=== PATIENT | female | born 1995 | race Caucasian/White ===

== ENCOUNTER 2017-03-01 00:25 | Inpatient (IN) | payer BC ==
[2017-03-01] MEDS ORDERED: NORMAL SALINE 1000 ML 1,000 ML IV PRN ×2 (00:33→02:36)
[2017-03-01] MEDS ORDERED: DEXTROSE 50%-WATER 25 GM/50 ML DISP.SYRIN IV PRN ×4 (00:35→02:36)
[2017-03-01] MEDS ORDERED: DEXTROSE 40% GEL 15 GM TUBE PO PRN ×5 (00:35→14:39)
[2017-03-01] MEDS ORDERED: NORMAL SALINE 100 ML with INSULIN REGULAR, HUMAN 100 UNIT IV PRN ×4 (00:35→02:36)
[2017-03-01] MEDS ORDERED: GLUCAGON,HUMAN RECOMB 1 MG INJ IM PRN ×3 (00:35→14:39)
--- NOTE | 2017-03-01 00:35 | ER Document Report ---
ED General - General Stated Complaint: UNRESPONSIVE Time Seen by Provider: 03/01/17 00:33 Notes: Patient is a 21-year-old female presents with complaints of being found unresponsive. She stays with friends at [place]. She has a history of type 1 diabetes. She is not compliant with her medications per the production recorder report. Paramedics said that a friend of hers said that they found her poorly responsive and could not wake her up and therefore called the implants. It is unclear last time she was known well. Paramedics said they were called to her house personally 36 hours ago because he was concerned that someone stole her medications. This was later denied when the paramedics arrived and therefore they left. There is a 36 hours ago she was awake alert and oriented. Patient does have 3 different medication bottles are brought with her. 2 of them have appropriate amounts of medications. The third 1 is gabapentin. This prescription was filled on February 06. It was for 120 tablets. This means there is approximately 28 gabapentin tablets missing. Currently her pupils are dilated and she is somnolent and very dry appearing. - Related Data Allergies/Adverse Reactions: ciprofloxacin [From Cipro] Adverse Reaction (Verified 03/01/17 00:59) midazolam [From Versed] Adverse Reaction (Verified 03/01/17 00:59) Past Medical History - Social History Smoking Status: Never Smoker Frequency of alcohol use: None Drug Abuse: None Family History: Reviewed & Not Pertinent Review of Systems - Review of Systems -: Yes ROS unobtainable due to patient's medical condition - Patient is unresponsive. Physical Exam - Vital signs Vitals: Pulse Ox 89 L 03/01/17 00:27 - Notes Notes: General Appearance: Very dehydrated appearing. Poorly responsive. Pupils dilated. Patient moves extremities some on her own. Vitals: reviewed, See vital signs table. Head: no swelling or tenderness to the head Eyes: , EOMI, Conjuctiva clear. Pupils are dilated but equal and responsive to light. Mouth: Very dry. Throat: No tonsillar inflammation, No airway obstruction, No lymphadenopathy Neck: Supple, no neck tenderness, No thyromegaly Lungs: No wheezing, No rales, No rhonci, No accessory muscle use, good air exchange bilaterally. Heart: Normal rate, Regular rythm, No murmur, no rub Abdomen: Normal BS, soft, No rigidity, No abdominal tenderness, No guarding, large ventral scar of her abdomen which per the paramedics is from a previous appendectomy. Extremities: , good pulses in all extremities, no swelling or tenderness in the extremities, no edema. Skin: warm, dry, appropriate color, no rash Neuro: Poorly responsive. Pupils dilated. Patient moves extremities some on her own. Vitals: reviewed, See vital signs table. Course - Re-evaluation Re-evalutation: 03/01/17 02:25 Patient's chemistry panel Miller came back. Her CO2 is less than 5. PH is X.73. Her blood sugars over 1400. Her insulin drip will be increased to 5 units an hour. She has been started on a bicarb drip. Her core temp is slowly moving upwards. I will call the hospitalist for consideration for admission. - Vital Signs Vital signs: Temp Pulse Resp BP Pulse Ox 97.9 F 112 H 32 H 104/70 100 03/01/17 05:09 03/01/17 05:09 03/01/17 05:09 03/01/17 05:09 03/01/17 05:09 - Laboratory Result Diagrams: 03/01/17 00:40 03/01/17 05:00 Laboratory results interpreted by me: 03/01/17 03/01/17 03/01/17 00:40 00:40 00:40 WBC 19.5 H RBC 3.38 L Hgb 9.7 L MCV 124 H MCHC 23.2 L RDW 16.7 H Plt Count 626 H Seg Neuts % (Manual) 79 H Band Neutrophils % 2 L Lymphocytes % (Manual) 11 L Abs Neuts (Manual) 15.8 H Abs Monocytes (Manual) 1.6 H Carbonic Acid ABG pH ABG pCO2 ABG pO2 ABG HCO3 ABG Total CO2 VBG pH 6.73 L* VBG pCO2 24.8 L VBG HCO3 3.2 L Sodium 136.6 L Potassium 7.2 H* Chloride 92 L Carbon Dioxide < 5 L* BUN 54 H Creatinine 2.90 H Est GFR ( Amer) 24 L Est GFR (Non-Af Amer) 20 L Glucose 1454 H* Direct Bilirubin 0.6 H Alkaline Phosphatase 212 H Creatine Kinase Urine Protein Urine Glucose (UA) Urine Ketones Salicylates < 1.0 L Acetaminophen < 10 L 03/01/17 03/01/17 03/01/17 00:40 01:10 03:24 WBC RBC Hgb MCV MCHC RDW Plt Count Seg Neuts % (Manual) Band Neutrophils % Lymphocytes % (Manual) Abs Neuts (Manual) Abs Monocytes (Manual) Carbonic Acid 0.40 L ABG pH 6.96 L* ABG pCO2 13.4 L* ABG pO2 144.3 H ABG HCO3 2.9 L ABG Total CO2 3.3 L VBG pH VBG pCO2 VBG HCO3 Sodium Potassium Chloride Carbon Dioxide BUN Creatinine Est GFR ( Amer) Est GFR (Non-Af Amer) Glucose Direct Bilirubin Alkaline Phosphatase Creatine Kinase 21 L Urine Protein 100 H Urine Glucose (UA) >=500 H Urine Ketones 80 H Salicylates Acetaminophen - EKG Interpretation by Me Additional EKG results interpreted by me: 03/01/17 00:42 EKG is reviewed and interpreted by me. EKG shows sinus rhythm with rate of [address] segment elevation. Slight ST segment depression in leads V5 and V6. UT interval, QRS duration are within normal range. QTc interval is prolonged. No old EKG available for comparison. Procedures - Central Line Right Femoral Consent obtained: No - emergent implied Central line pre-insertion: Chloraprep applied Central line lumen type: Triple Ultrasound guided: Yes Central line post-insertion: Blood return from lumens, Biopatch applied, Sutured , Sterile dressing applied Number of attempts: 1 Complications: No Notes: 03/01/17 06:37 Dark nonpulsatile blood was withdrawn from syringe. After placement of the central line catheter dark nonpulsatile blood moved up the midline of the central line. Critical Care Note - Critical Care Note Total time excluding time spent on procedures (mins): 75 Comments: Ankle care time for this patient including multiple re-evaluations, management of fluids, management of DKA, management of hypothermia, management of severe metabolic acidosis was approximately 75 minutes. This is not including time spent on procedure. Discharge - Discharge Clinical Impression: DKA (diabetic ketoacidoses) Qualifiers: Diabetes mellitus type: type 1 Diabetes mellitus complication detail: with coma Qualified Code(s): E10.11 - Type 1 diabetes mellitus with ketoacidosis with coma Overdose Qualifiers: Encounter type: initial encounter Injury intent: undetermined intent Qualified Code(s): T50.904A - Poisoning by unspecified drugs, medicaments and biological substances, undetermined, initial encounter Condition: Stable Disposition: ADMITTED INPATIENT Admitting Provider: Hospitalist Unit Admitted: ICU
[2017-03-01 00:52] LABS: HEMATOCRIT 41.8 % (36.0-47.0); HEMOGLOBIN 9.7 g/dL (12.0-15.5); MEAN CORPUSCULAR HEMOGLOBIN 28.8 pg (27.0-33.4); MEAN CORPUSCULAR HGB CONC 23.2 g/dL (32.0-36.0); RED BLOOD COUNT 3.38 10^6/uL (3.72-5.28); RED CELL DISTRIBUTION WIDTH 16.7 % (11.5-14.0); WHITE BLOOD COUNT 19.5 10^3/uL (4.0-10.5)
[2017-03-01 00:56] LABS: VENOUS BLOOD BASE EXCESS -31.4 mmol/L; VENOUS BLOOD HCO3 3.2 mmol/L (20-32); VENOUS BLOOD PCO2 24.8 mmHg (35-63)
[2017-03-01 01:00] LABS: HGB HCT DIFFERENCE -12.7
[2017-03-01 01:29] LABS: BAND NEUTROPHILS % (MANUAL) 2 % (3-5); BASOPHILS % (MANUAL) 0 % (0-2); EOSINOPHILS % (MANUAL) 0 % (0-6); LYMPHOCYTES % (MANUAL) 11 % (13-45); TOTAL CELLS COUNTED 100
[2017-03-01 01:30] LABS: ALANINE AMINOTRANSFERASE 27 U/L (9-52); ALBUMIN 3.8 g/dL (3.5-5.0); ALKALINE PHOSPHATASE 212 U/L (38-126); ANISOCYTOSIS 1+; ASPARTATE AMINO TRANSFERASE 21 U/L (14-36); BILIRUBIN,DIRECT 0.6 mg/dL (0.0-0.4); BILIRUBIN,TOTAL 0.6 mg/dL (0.2-1.3); BLOOD UREA NITROGEN 54 mg/dL (7-20); CALCIUM 8.9 mg/dL (8.4-10.2); CHLORIDE 92 mmol/L (98-107); POIKILOCYTOSIS SLIGHT; SODIUM 136.6 mmol/L (137-145); TOTAL PROTEIN 7.1 g/dL (6.3-8.2); TOXIC GRANULATION SLIGHT
[2017-03-01 01:31] LABS: MEAN CORPUSCULAR VOLUME 124 fl (80-97)
[2017-03-01] MEDS ORDERED: INSULIN REG, HUMAN 100 UNIT/ML 3 ML VIAL (PYX) ONE (01:33)
[2017-03-01 01:34] LABS: VENOUS BLOOD PH 6.73 (7.30-7.42)
[2017-03-01 01:36] LABS: ALCOHOL < 10 mg/dL (NONE DETECTED)
[2017-03-01] MEDS ORDERED: NORMAL SALINE 1000 ML 1,000 ML IV ONE (01:42)
[2017-03-01 02:01] LABS: APPEARANCE,URINE SLIGHTLY-CLOUDY; BILIRUBIN,URINE NEGATIVE (NEGATIVE); GLUCOSE, URINE >=500 mg/dL (NEGATIVE); KETONES,URINE 80 mg/dL (NEGATIVE); LEUKOCYTE ESTERASE,URINE NEGATIVE (NEGATIVE); NITRITE,URINE NEGATIVE (NEGATIVE); PROTEIN,URINE 100 mg/dL (NEGATIVE); URINE SPECIFIC GRAVITY 1.022; UROBILINOGEN,URINE NEGATIVE mg/dL (<2.0)
[2017-03-01] MEDS ORDERED: DEXTROSE 5%-WATER 1000 ML 1,000 ML with SODIUM BICARBONATE 150 MEQ IV PRN ×4 (02:11→06:37)
[2017-03-01 02:12] LABS: GLUCOSE 1454 mg/dL (75-110); POTASSIUM 7.2 mmol/L (3.6-5.0)
[2017-03-01 02:13] LABS: CARBON DIOXIDE < 5 mmol/L (22-30)
[2017-03-01 02:14] LABS: URINE BARBITURATES SCREEN NEGATIVE; URINE METHADONE SCREEN NEGATIVE; URINE OPIATES LOW NEGATIVE; URINE PHENCYCLIDINE SCREEN NEGATIVE
[2017-03-01] MEDS ORDERED: SODIUM BICARBONATE 8.4% INJ 50 MEQ/50 ML DISP.SYRIN ONE ×2 (02:15→06:13)
[2017-03-01] MEDS ORDERED: NORMAL SALINE 1000 ML 2,000 ML IV ONE (02:37)
[2017-03-01] MEDS ORDERED: ALBUTEROL SULFATE 0.083% NEB 2.5 MG/3 ML AMPUL NEB ONE (02:38)
[2017-03-01] MEDS ORDERED: ONDANSETRON HCL INJ/PF 4 MG/2 ML SDV IV PRN ×2 (03:29→20:03)
[2017-03-01 03:34] LABS: ARTERIAL BLOOD BASE EXCESS -27.2 mmol/L; ARTERIAL BLOOD O2 SATURATION 97.3 % (94-98)
--- NOTE | 2017-03-01 04:25 | PDOC H&P ---
History of Present Illness Admission Date/PCP: 03/01/17 03:51 History of Present Illness: NATALI CARDENAS is a 21 year old female with a PMH of poorly compliant DM type I. Patient was found unresponsive by friends who then activated EMS. History is unobtainable from patient at this time and is therefore obtained from the ER physician documentation. "It is unclear last time she was known well. Paramedics said they were called to her house personally 36 hours ago because he was concerned that someone stole her medications. This was later denied when the paramedics arrived and therefore they left. There is a 36 hours ago she was awake alert and oriented. Patient does have 3 different medication bottles are brought with her. 2 of them have appropriate amounts of medications. The third is gabapentin. This prescription was filled on February 06. It was for 120 tablets. This means there is approximately 28 gabapentin tablets missing. Currently her pupils are dilated and she is somnolent and very dry appearing." Patient was found to be in DKA with a pH of 6.7, blood glucose 1454, K of 7.2, and obtunded. She is referred to the hospital service for admission. Medications are at bedside and are Seroquel, gabapentin, and NovoLog. Past Medical History Medical History: Other - Able to obtain secondary to obtundation, presumed diabetes mellitus type 1 Endocrine Medical History: Reports: Diabetes Mellitus Type 1 Past Surgical History Past Surgical History: Reports: Appendectomy, Other - Unable to obtain secondary to obtundation, patient has a midline scar Social History Smoking Status: Never Smoker Amount of Alcoholic Beverages Per Day: Unknown Past Social History Note: Able to obtain secondary to obtundation - Advance Directive Resuscitation Status: Full Code Family History Family History: Reviewed & Not Pertinent, Other - Unable to obtain secondary to obtundation Parental Family History Reviewed: No - Obtunded Children Family History Reviewed: No Sibling(s) Family History Reviewed.: No Medication/Allergy Allergies/Adverse Reactions: ciprofloxacin [From Cipro] Adverse Reaction (Verified 03/01/17 00:59) midazolam [From Versed] Adverse Reaction (Verified 03/01/17 00:59) Review of Systems ROS unobtainable: Due to mental status Physical Exam Vital Signs: Temp Pulse Resp BP Pulse Ox 96.8 F L 22 H 101/62 98 03/01/17 03:55 03/01/17 03:55 03/01/17 03:55 03/01/17 03:55 General appearance: PRESENT: mild distress, well-developed, well-nourished Head exam: PRESENT: atraumatic, normocephalic Eye exam: PRESENT: conjunctiva pink, EOMI, PERRLA - Mydriasis. ABSENT: scleral icterus Ear exam: PRESENT: normal external ear exam Mouth exam: PRESENT: dry mucosa, tongue midline Neck exam: ABSENT: JVD, lymphadenopathy, thyromegaly, tracheal deviation Respiratory exam: PRESENT: clear to auscultation dmitry, symmetrical, tachypnea, unlabored. ABSENT: accessory muscle use, crackles, decreased breath sounds, prolonged expiratory phas, rales, retraction, rhonchi, wheezes Cardiovascular exam: PRESENT: RRR, +S1, +S2, tachycardia. ABSENT: diastolic murmur, gallop, rubs, systolic murmur Pulses: PRESENT: normal dorsalis pedis pul Vascular exam: PRESENT: normal capillary refill GI/Abdominal exam: PRESENT: hypoactive bowel sounds, soft. ABSENT: distended, firm, guarding, mass, Palmer's sign, organolmegaly, rebound, rigid, tenderness Rectal exam: PRESENT: deferred Extremities exam: PRESENT: full ROM. ABSENT: clubbing, pedal edema Neurological exam: PRESENT: altered, other - Withdraws to painful stimuli Psychiatric exam: PRESENT: other - Obtunded, withdraws to painful stimuli Skin exam: PRESENT: dry, warm. ABSENT: cyanosis, intact - mulitple track estrella on neck and bilateral feet, rash Results Laboratory Results: 03/01/17 03/01/17 03/01/17 00:40 00:40 00:40 WBC 19.5 H Hgb 9.7 L MCV 124 H Plt Count 626 H Seg Neuts % (Manual) 79 H ABG pH ABG pCO2 ABG pO2 ABG HCO3 VBG pH VBG pCO2 VBG HCO3 Sodium 136.6 L Potassium 7.2 H* Chloride 92 L Carbon Dioxide < 5 L* Anion Gap SYSTEMS SUPPORT ENGINEER BUN 54 H Creatinine 2.90 H Glucose 1454 H* Calcium 8.9 Total Bilirubin 0.6 Direct Bilirubin 0.6 H AST 21 ALT 27 Alkaline Phosphatase 212 H Creatine Kinase Troponin I Total Protein 7.1 Albumin 3.8 TSH Serum HCG, Qual NEGATIVE Ur Specific [place] Urine Protein Urine Glucose (UA) Urine Ketones Salicylates < 1.0 L Urine Opiates Screen Urine Methadone Screen Acetaminophen < 10 L Ur Barbiturates Screen Ur Phencyclidine Scrn Ur Amphetamines Screen U Benzodiazepines Scrn Urine Cocaine Screen U Marijuana (THC) Screen Serum Alcohol < 10 03/01/17 03/01/17 03/01/17 00:40 00:40 00:40 WBC Hgb MCV Plt Count Seg Neuts % (Manual) ABG pH ABG pCO2 ABG pO2 ABG HCO3 VBG pH 6.73 L* VBG pCO2 24.8 L VBG HCO3 3.2 L Sodium Potassium Chloride Carbon Dioxide Anion Gap BUN Creatinine Glucose Calcium Total Bilirubin Direct Bilirubin AST ALT Alkaline Phosphatase Creatine Kinase 21 L Troponin I Total Protein Albumin TSH Pending Serum HCG, Qual Ur Specific [place] Urine Protein Urine Glucose (UA) Urine Ketones Salicylates Urine Opiates Screen Urine Methadone Screen Acetaminophen Ur Barbiturates Screen Ur Phencyclidine Scrn Ur Amphetamines Screen U Benzodiazepines Scrn Urine Cocaine Screen U Marijuana (THC) Screen Serum Alcohol 03/01/17 03/01/17 03/01/17 00:40 01:10 01:10 WBC Hgb MCV Plt Count Seg Neuts % (Manual) ABG pH ABG pCO2 ABG pO2 ABG HCO3 VBG pH VBG pCO2 VBG HCO3 Sodium Potassium Chloride Carbon Dioxide Anion Gap BUN Creatinine Glucose Calcium Total Bilirubin Direct Bilirubin AST ALT Alkaline Phosphatase Creatine Kinase Troponin I < 0.012 Total Protein Albumin TSH Serum HCG, Qual Ur Specific [place] 1.022 Urine Protein 100 H Urine Glucose (UA) >=500 H Urine Ketones 80 H Salicylates Urine Opiates Screen NEGATIVE Urine Methadone Screen NEGATIVE Acetaminophen Ur Barbiturates Screen NEGATIVE Ur Phencyclidine Scrn NEGATIVE Ur Amphetamines Screen NEGATIVE U Benzodiazepines Scrn NEGATIVE Urine Cocaine Screen NEGATIVE U Marijuana (THC) Screen NEGATIVE Serum Alcohol 03/01/17 03:24 WBC Hgb MCV Plt Count Seg Neuts % (Manual) ABG pH 6.96 L* ABG pCO2 13.4 L* ABG pO2 144.3 H ABG HCO3 2.9 L VBG pH VBG pCO2 VBG HCO3 Sodium Potassium Chloride Carbon Dioxide Anion Gap BUN Creatinine Glucose Calcium Total Bilirubin Direct Bilirubin AST ALT Alkaline Phosphatase Creatine Kinase Troponin I Total Protein Albumin TSH Serum HCG, Qual Ur Specific [place] Urine Protein Urine Glucose (UA) Urine Ketones Salicylates Urine Opiates Screen Urine Methadone Screen Acetaminophen Ur Barbiturates Screen Ur Phencyclidine Scrn Ur Amphetamines Screen U Benzodiazepines Scrn Urine Cocaine Screen U Marijuana (THC) Screen Serum Alcohol Status: Imported from PACS Assessment & Plan - Diagnosis (1) DKA (diabetic ketoacidoses) Qualifiers: Diabetes mellitus type: type 1 Diabetes mellitus complication detail: with coma Qualified Code(s): E10.11 - Type 1 diabetes mellitus with ketoacidosis with coma Is this a current diagnosis for this admission?: Yes Plan: Place patient on normal saline at 250 an hour after a total of 5 L normal saline bolus. On insulin drip On bicarb ggt @150mL/hr BMP q4h Have obtained blood and urine cultures to rule out other causes of DKA besides noncompliance and overdose. Continue with cardiac enzymes for this reason. (2) Overdose Qualifiers: Encounter type: initial encounter Injury intent: undetermined intent Qualified Code(s): T50.904A - Poisoning by unspecified drugs, medicaments and biological substances, undetermined, initial encounter Is this a current diagnosis for this admission?: Yes Plan: Place patient on IVC. Sitter for suicide attempt Likely secondary to ingestion of Neurontin based on her presentation and missing pills. Supportive care. Have discussed this with [place] poison control who are in agreement with current management. (3) Hyperkalemia Is this a current diagnosis for this admission?: Yes Plan: Secondary to DKA. Patient is on bicarbonate drip and will give albuterol neb. Continue to monitor with every 4 BMP. (4) Acute renal failure Qualifiers: Acute renal failure type: unspecified Qualified Code(s): N17.9 - Acute kidney failure, unspecified Is this a current diagnosis for this admission?: Yes Plan: Likely secondary to intravascular volume depletion. Continue aggressive hydration. (5) Anemia Qualifiers: Anemia type: unspecified type Qualified Code(s): D64.9 - Anemia, unspecified Is this a current diagnosis for this admission?: Yes Plan: We will obtain anemia panel. Likely secondary to iron deficiency anemia based on her age. (6) Leukocytosis Qualifiers: Leukocytosis type: leukemoid reaction Qualified Code(s): D72.823 - Leukemoid reaction Is this a current diagnosis for this admission?: Yes Plan: Most likely a leukemoid reaction secondary to her DKA. Have obtained blood and urine cultures and my biggest concern due to her current mental status, is for aspiration pneumonia. Will continue to monitor her clinically and repeat her CBC in the morning. (7) Hypothermia Qualifiers: Encounter type: initial encounter Qualified Code(s): T68.XXXA - Hypothermia , initial encounter Is this a current diagnosis for this admission?: Yes Plan: Patient is on bear hugger and receiving warmed IV fluids. Patient's initial core temperature was 91F. Likely secondary to overdose and exposure. Will check TSH. - Time Time Spent: 30 to 50 Minutes Critical Time spent with patient: 35 or more minutes Medications reviewed and adjusted accordingly: Yes - Inpatient Certification Based on my medical assessment, after consideration of the patient's comorbidities, presenting symptoms, or acuity I expect that the services needed warrant INPATIENT care.: Yes I certify that my determination is in accordance with my understanding of Medicare's requirements for reasonable and necessary INPATIENT services [42 CFR 412.3e].: Yes Medical Necessity: Need For IV Fluids, Need For Continuous Telemetry Monitoring Post Hospital Care: D/C Load Planner Documentation
[2017-03-01 05:47] LABS: BLOOD UREA NITROGEN 49 mg/dL (7-20); CHLORIDE 111 mmol/L (98-107); CREATININE RESULT 2.13 mg/dL (0.52-1.25)
[2017-03-01] MEDS: HEPARIN SOD (PORCINE) 5,000 UNIT/ML 1 ML SYRINGE SUBCUT SCH ×3 (05:54→21:55)
[2017-03-01 05:56] LABS: CALCIUM 7.1 mg/dL (8.4-10.2)
[2017-03-01 06:05] LABS: POTASSIUM 5.2 mmol/L (3.6-5.0)
[2017-03-01 06:09] LABS: GLUCOSE 945 mg/dL (75-110)
[2017-03-01 06:10] LABS: CARBON DIOXIDE < 5 mmol/L (22-30)
[2017-03-01] MEDS ORDERED: SODIUM BICARBONATE 8.4% INJ 50 MEQ/50 ML DISP.SYRIN IV ONE (06:45)
--- NOTE | 2017-03-01 07:50 | Progress Note ---
Provider Note Provider Note: Patient admitted earlier today. Chart reviewed and patient examined: 21-year-old with history of poory controlled diabetes mellitus type 1, was found unresponsive by a friend who then activated EMS. She was found to be in severe DKA with pH 6.7, capillary glucose of 1454, K of 7.2. Additionally, there was question of possible ingestion of unknown medications, thought to be possibly gabapentin [ approximately 28 tablets of gabapentin we are missing from a bottle). She was admitted to the intensive care unit and started on DKA protocol. Assessment and plan Diabetic ketoacidosis in a patient with diabetes mellitus type 1, uncontrolled A1c greater than 14. Continue aggressive DKA protocol with aggressive IV fluids [including bicarbonate infusion] and IV insulin infusion. Acute kidney injury, nonoliguric, due to DKA. Continue aggressive IV fluids and follow renal function Metabolic encephalopathy, acute, due to severe DKA. Maintain n.p.o., maintain aspiration precautions, continue to follow Possible substance abuse, with questionable ingestion of gabapentin. Urine drug screen is negative. Serum alcohol level is less than 10, salicylate and acetaminophen within normal. Continue to monitor Leukocytosis, WBC 19.5, afebrile, likely stress reactant Rest of plan as per previously dictated H&P
[2017-03-01] MEDS ORDERED: INFLUENZA ADLT QUAD (36MOS+) 2017-18 VAC 0.5 ML SYR IM PRN (07:59)
[2017-03-01] MEDS ORDERED: PHARMACY COMMUNICATION ORDER MC NR (08:45)
--- NOTE | 2017-03-01 09:07 | RADIOLOGY REPORT (SQ) ---
EXAM DESCRIPTION: KUB/ABDOMEN (SINGLE VIEW) COMPLETED DATE/TIME: 03/01/2017 8:58 am REASON FOR STUDY: NG placement COMPARISON: None. TECHNIQUE: AP view of the lower thorax and upper abdomen LIMITATIONS: None. FINDINGS: NG tube is identified with its tip in the left upper quadrant presumably in the proximal s tomach. IMPRESSION: NG tube with its tip in the left upper quadrant presumably in the proximal stomach TECHNICAL DOCUMENTATION: JOB ID: [id number] [employer]- All Rights Reserved
[2017-03-01 09:13] LABS: ARTERIAL BLOOD O2 SATURATION 98.6 % (94-98)
[2017-03-01 09:33] LABS: ANION GAP 19 (5-19); BLOOD UREA NITROGEN 44 mg/dL (7-20); CALCIUM 7.3 mg/dL (8.4-10.2); CHLORIDE 115 mmol/L (98-107); CREATININE RESULT 1.72 mg/dL (0.52-1.25); SODIUM 152.6 mmol/L (137-145)
[2017-03-01 09:41] LABS: POTASSIUM 3.7 mmol/L (3.6-5.0)
[2017-03-01 09:42] LABS: CARBON DIOXIDE 19 mmol/L (22-30)
[2017-03-01 09:43] LABS: GLUCOSE 514 mg/dL (75-110)
[2017-03-01] MEDS: FAMOTIDINE INJ/PF 20 MG/2 ML SDV IV SCH ×2 (09:53→21:55)
[2017-03-01] MEDS ORDERED: POTASSI CL 20 MEQ/50 ML RIDER 20 MEQ/50 ML RTUPB IV SCH (10:43)
[2017-03-01] MEDS ORDERED: DEXTROSE 5%-NORMAL SALINE 1,000 ML IV PRN (10:47)
[2017-03-01] MEDS ORDERED: POTASSIUM CHLORIDE 20 MEQ/50 ML RTU IV ONE (11:30)
[2017-03-01 13:27] LABS: ANION GAP 12 (5-19); BLOOD UREA NITROGEN 38 mg/dL (7-20); CALCIUM 7.5 mg/dL (8.4-10.2); CARBON DIOXIDE 26 mmol/L (22-30); CHLORIDE 120 mmol/L (98-107); CREATININE RESULT 1.45 mg/dL (0.52-1.25); GLUCOSE 234 mg/dL (75-110); POTASSIUM 3.8 mmol/L (3.6-5.0)
[2017-03-01] MEDS ORDERED: INSULIN GLARGINE,HUM.REC.ANLOG 1,000 UNIT/10 ML UNIT SUBCUT ONE (14:30)
[2017-03-01] MEDS ORDERED: DEXTROSE 40% GEL 15 GM TUBE X 2 PO PRN (14:39)
[2017-03-01] MEDS ORDERED: DEXTROSE 50%-WATER SYRINGE 12.5 GM/25 ML DOSE IV PRN (14:39)
[2017-03-01] MEDS ORDERED: DEXTROSE 50%-WATER SYRINGE 25 GM/50 ML DOSE IV PRN (14:39)
[2017-03-01] MEDS ORDERED: DEXTROSE 5%-WATER 1000 ML 1,000 ML with POTASSIUM CHLORIDE 40 MEQ IV PRN ×2 (15:12)
--- NOTE | 2017-03-01 15:46 | EKG REPORT ---
SEVERITY:- ABNORMAL ECG - SINUS RHYTHM PROLONGED QT INTERVAL : Confirmed by: Lucrecia Braun 01-Mar-2017 15:45:48
[2017-03-01] MEDS: DEXTROSE 5%-WATER 1000 ML 1,000 ML with POTASSIUM CHLORIDE 40 MEQ IV PRN ×4 (16:31→23:24)
[2017-03-01 17:33] LABS: ANION GAP 14 (5-19); BLOOD UREA NITROGEN 33 mg/dL (7-20); CALCIUM 7.8 mg/dL (8.4-10.2); CARBON DIOXIDE 24 mmol/L (22-30); CHLORIDE 119 mmol/L (98-107); CREATININE RESULT 1.16 mg/dL (0.52-1.25); GLUCOSE 132 mg/dL (75-110); POTASSIUM 4.2 mmol/L (3.6-5.0); SODIUM 157.1 mmol/L (137-145)
[2017-03-01] MEDS ORDERED: CLONIDINE 0.1 MG/24 HR PATCH.TDWK TD ONE (19:56)
[2017-03-01] MEDS ORDERED: CLONIDINE 0.1 MG/24 HR PATCH.TDWK ONE (20:47)
[2017-03-01 21:41] LABS: ANION GAP 12 (5-19); BLOOD UREA NITROGEN 29 mg/dL (7-20); CALCIUM 8.3 mg/dL (8.4-10.2); CARBON DIOXIDE 26 mmol/L (22-30); CHLORIDE 118 mmol/L (98-107); CREATININE RESULT 1.15 mg/dL (0.52-1.25); GLUCOSE 182 mg/dL (75-110); SODIUM 155.6 mmol/L (137-145)
[2017-03-01] MEDS ORDERED: INSULIN GLARGINE,HUM.REC.ANLOG 300 UNIT/3 ML INSULN.PEN SUBCUT SCH (22:00)
[2017-03-02 02:45] LABS: ANION GAP 8 (5-19); BLOOD UREA NITROGEN 23 mg/dL (7-20); CALCIUM 7.8 mg/dL (8.4-10.2); CARBON DIOXIDE 25 mmol/L (22-30); CHLORIDE 116 mmol/L (98-107); CREATININE RESULT 0.96 mg/dL (0.52-1.25); GLUCOSE 200 mg/dL (75-110); POTASSIUM 4.7 mmol/L (3.6-5.0); SODIUM 149.1 mmol/L (137-145)
[2017-03-02] MEDS: DEXTROSE 5%-WATER 1000 ML 1,000 ML with POTASSIUM CHLORIDE 40 MEQ IV PRN ×4 (04:50→13:45)
[2017-03-02] MEDS: HEPARIN SOD (PORCINE) 5,000 UNIT/ML 1 ML SYRINGE SUBCUT SCH ×3 (05:33→21:42)
[2017-03-02 06:12] LABS: ABSOLUTE BASOPHILS # (AUTO) 0.1 10^3/uL (0.0-0.2); ABSOLUTE MONOCYTES (AUTO) 0.8 10^3/uL (0.1-1.4); ABSOLUTE NEUT (AUTO) 9.5 10^3/uL (1.7-8.2); BASOPHILS % (AUTO) 0.5 % (0-2); EOSINOPHILS % (AUTO) 0.1 % (0-6); HEMATOCRIT 25.9 % (36.0-47.0); HEMOGLOBIN 8.7 g/dL (12.0-15.5); HGB HCT DIFFERENCE 0.2; LYMPHOCYTES % (AUTO) 16.3 % (13-45); MEAN CORPUSCULAR HEMOGLOBIN 29.6 pg (27.0-33.4); MEAN CORPUSCULAR HGB CONC 33.5 g/dL (32.0-36.0); MONOCYTES % (AUTO) 6.3 % (3-13); RED BLOOD COUNT 2.93 10^6/uL (3.72-5.28); RED CELL DISTRIBUTION WIDTH 15.1 % (11.5-14.0); SEGMENTED NEUTROPHILS % (AUTO) 76.8 % (42-78); WHITE BLOOD COUNT 12.4 10^3/uL (4.0-10.5)
[2017-03-02 06:15] LABS: MEAN CORPUSCULAR VOLUME 88 fl (80-97)
[2017-03-02 06:18] LABS: ANION GAP 9 (5-19); BLOOD UREA NITROGEN 19 mg/dL (7-20); CALCIUM 8.4 mg/dL (8.4-10.2); CARBON DIOXIDE 24 mmol/L (22-30); CHLORIDE 116 mmol/L (98-107); CREATINE KINASE 58 U/L (30-135); CREATININE RESULT 0.94 mg/dL (0.52-1.25); GLUCOSE 114 mg/dL (75-110); MAGNESIUM 1.7 mg/dL (1.6-2.3); POTASSIUM 4.4 mmol/L (3.6-5.0); SODIUM 148.9 mmol/L (137-145)
[2017-03-02 06:39] LABS: STAIN REACTIVITY CHECK ACCEPTABLE
[2017-03-02] MEDS: INSULIN LISPRO 100 UNIT/ML 3 ML VIAL SUBCUT PRN ×2 (08:12→11:26)
--- NOTE | 2017-03-02 08:14 | PDOC PROGRESS REPORT ---
Subjective Progress Note for:: 03/02/17 Subjective:: Day 2 of hospitalization: Follow-up visit for DKA, altered mental status. 20-year-old female with history of poorly controlled diabetes mellitus type 1, was found unresponsive by a friend who then activated EMS. She was found to be in severe DKA with pH 6.7, capillary glucose of 1454, K of 7.2. Additionally, there was question of possible ingestion of unknown medications, thought to be possibly gabapentin [approximately 28 tablets of gabapentin were missing from the bottle]. She was admitted to the intensive care unit and started on the DKA protocol: Aggressive IV fluids, IV insulin. Her anion gap has closed, and she has been transitioned to subcutaneous insulin regimen. Overnight patient was coughing, gagging, attempting to sit up. The NG tube became displaced. Attempts to replace the NG tube were unsuccessful. Patient is more awake and interactive this morning. However, she remains confused and disoriented. She answers questions in monosyllables. Denies CP/SOB. Afebrile Physical Exam Vital Signs: Temp Pulse Resp BP Pulse Ox 99.5 F 108 H 18 148/107 H 100 03/02/17 05:23 03/01/17 20:00 03/02/17 06:00 03/02/17 05:23 03/02/17 06:00 Intake & Output 03/01/17 03/02/17 03/03/17 06:59 06:59 06:59 Intake Total 2387 Output Total 1200 3506 Balance -1200 -1119 Weight 55.2 kg 54.9 kg General appearance: PRESENT: disheveled, mild distress, thin Head exam: PRESENT: atraumatic, normocephalic Eye exam: PRESENT: conjunctiva pink, EOMI, PERRLA Teeth exam: PRESENT: poor dentation Respiratory exam: PRESENT: decreased breath sounds, rhonchi, symmetrical Cardiovascular exam: PRESENT: RRR, +S1, +S2, tachycardia GI/Abdominal exam: PRESENT: normal bowel sounds, soft. ABSENT: ascites, diminished bowel sounds, distended, firm, guarding, hernia, hyperactive bowel sounds, hypoactive bowel sounds, mass, Palmer's sign, organolmegaly, rebound, rigid, tenderness, other Neurological exam: PRESENT: altered, awake, reflexes normal, CN II-XII grossly intact. ABSENT: alert, oriented to person, oriented to place, oriented to time , oriented to situation, abnormal gait, ataxia, motor sensory deficit, normal gait, aphasic, other Results Laboratory Results: 03/02/17 05:40 03/02/17 05:40 03/01/17 03/01/17 03/01/17 07:41 07:41 08:18 WBC RBC Hgb Hct MCV MCH MCHC RDW Plt Count Seg Neutrophils % Lymphocytes % Monocytes % Eosinophils % Basophils % Absolute Neutrophils Absolute Lymphocytes Absolute Monocytes Absolute Eosinophils Absolute Basophils Retic Count (auto) Absolute Retic Carbonic Acid 0.99 L HCO3/H2CO3 Ratio 17:1 ABG pH 7.35 ABG pCO2 32.9 L ABG pO2 134.3 H ABG HCO3 17.8 L ABG O2 Saturation 98.6 H ABG Base Excess -7.0 FiO2 2L Sodium Cancelled Potassium Cancelled Chloride Cancelled Carbon Dioxide Cancelled Anion Gap Cancelled BUN Cancelled Creatinine Cancelled Est GFR ( Amer) Cancelled Est GFR (Non-Af Amer) Cancelled Glucose Cancelled 623 H* Calcium Cancelled Magnesium Iron TIBC % Saturation Ferritin Vitamin B12 Folate 03/01/17 03/01/17 03/01/17 08:46 12:48 16:55 WBC RBC Hgb Hct MCV MCH MCHC RDW Plt Count Seg Neutrophils % Lymphocytes % Monocytes % Eosinophils % Basophils % Absolute Neutrophils Absolute Lymphocytes Absolute Monocytes Absolute Eosinophils Absolute Basophils Retic Count (auto) Absolute Retic Carbonic Acid HCO3/H2CO3 Ratio ABG pH ABG pCO2 ABG pO2 ABG HCO3 ABG O2 Saturation ABG Base Excess FiO2 Sodium 152.6 H 158.0 H 157.1 H Potassium 3.7 D 3.8 4.2 Chloride 115 H 120 H 119 H Carbon Dioxide 19 L D 26 24 Anion Gap 19 12 14 BUN 44 H 38 H 33 H Creatinine 1.72 H 1.45 H 1.16 Est GFR ( Amer) 44 L 54 L > 60 Est GFR (Non-Af Amer) 37 L 45 L 58 L Glucose 514 H* 234 H 132 H Calcium 7.3 L 7.5 L 7.8 L Magnesium Iron TIBC % Saturation Ferritin Vitamin B12 Folate 03/01/17 03/02/17 03/02/17 21:10 01:50 05:40 WBC 12.4 H RBC 2.93 L Hgb 8.7 L Hct 25.9 L MCV 88 D MCH 29.6 MCHC 33.5 RDW 15.1 H Plt Count 347 Seg Neutrophils % 76.8 Lymphocytes % 16.3 Monocytes % 6.3 Eosinophils % 0.1 Basophils % 0.5 Absolute Neutrophils 9.5 H Absolute Lymphocytes 2.0 Absolute Monocytes 0.8 Absolute Eosinophils 0.0 Absolute Basophils 0.1 Retic Count (auto) 1.51 Absolute Retic 0.044 Carbonic Acid HCO3/H2CO3 Ratio ABG pH ABG pCO2 ABG pO2 ABG HCO3 ABG O2 Saturation ABG Base Excess FiO2 Sodium 155.6 H 149.1 H Potassium 4.0 4.7 Chloride 118 H 116 H Carbon Dioxide 26 25 Anion Gap 12 8 BUN 29 H 23 H Creatinine 1.15 0.96 Est GFR ( Amer) > 60 > 60 Est GFR (Non-Af Amer) 58 L > 60 Glucose 182 H 200 H Calcium 8.3 L 7.8 L Magnesium Iron TIBC % Saturation Ferritin Vitamin B12 Folate 03/02/17 05:40 WBC RBC Hgb Hct MCV MCH MCHC RDW Plt Count Seg Neutrophils % Lymphocytes % Monocytes % Eosinophils % Basophils % Absolute Neutrophils Absolute Lymphocytes Absolute Monocytes Absolute Eosinophils Absolute Basophils Retic Count (auto) Absolute Retic Carbonic Acid HCO3/H2CO3 Ratio ABG pH ABG pCO2 ABG pO2 ABG HCO3 ABG O2 Saturation ABG Base Excess FiO2 Sodium 148.9 H Potassium 4.4 Chloride 116 H Carbon Dioxide 24 Anion Gap 9 BUN 19 Creatinine 0.94 Est GFR ( Amer) > 60 Est GFR (Non-Af Amer) > 60 Glucose 114 H Calcium 8.4 Magnesium 1.7 Iron < 10.1 L TIBC 257 % Saturation UNABLE TO CALCULATE Ferritin 72.20 Vitamin B12 510.0 Folate 10.10 03/01/17 03/01/17 03/01/17 05:00 10:58 16:55 Creatine Kinase Troponin I < 0.012 0.028 0.047 03/01/17 03/02/17 23:35 05:40 Creatine Kinase 58 Troponin I 0.044 Impressions: KUB X-Ray 03/01/17 00:00 IMPRESSION: NG tube with its tip in the left upper quadrant presumably in the proximal stomach Status: Image reviewed by me Assessment & Plan - Diagnosis (1) DKA (diabetic ketoacidoses) Qualifiers: Diabetes mellitus type: type 1 Diabetes mellitus complication detail: with coma Qualified Code(s): E10.11 - Type 1 diabetes mellitus with ketoacidosis with coma Is this a current diagnosis for this admission?: Yes Plan: DKA and diabetes mellitus type 1, uncontrolled, A1c greater than 14%, due to medications non-compliance. DKA resolved after aggressive IV fluids, IV insulin infusion. Bicarbonate 24 [<5]. Patient transitioned to subcutaneous basal Lantus and correctional sliding scale insulin. Diabetic education and dietary instructions ordered (2) Acute metabolic encephalopathy Is this a current diagnosis for this admission?: Yes Plan: Altered mental status due to DKA and/or possible drug overdose. Friends report that patient may have taken up to 28 tablets of gabapentin. Urine drug screen is negative. Serum alcohol level is less than 10, salicylate and acetaminophen levels within normal limits. We will obtain a head CT scan and continue to monitor neuro checks. Maintain fall and aspiration precautions (3) Acute renal failure Qualifiers: Acute renal failure type: with acute tubular necrosis Qualified Code(s): N17.0 - Acute kidney failure with tubular necrosis Is this a current diagnosis for this admission?: Yes Plan: DARREN, nonoliguric, due to severe dehydration secondary to severe DKA. Resolved with aggressive IV fluids. Cr 0.94 [2.9]. (4) Anemia Qualifiers: Anemia type: iron deficiency Is this a current diagnosis for this admission?: Yes Plan: Iron deficiency anemia, Hb 8.7, MCV 88, iron <10, ferritin 72.2. We will start iron replacement (5) Leukocytosis Qualifiers: Leukocytosis type: leukemoid reaction Qualified Code(s): D72.823 - Leukemoid reaction Is this a current diagnosis for this admission?: Yes Plan: Afebrile, likely stress reactant due to DKA. WBC 12.4 [19.5]. Blood cultures no growth to date. Will monitor (6) Hypernatremia Is this a current diagnosis for this admission?: Yes Plan: Due to NSS/bicarbonate fluid resuscitation. Na 148 [158][136]. Continue free water replacement (7) DVT prophylaxis Is this a current diagnosis for this admission?: Yes Plan: Subcutaneous heparin - Time Time Spent with patient: 35 or more minutes Medications reviewed and adjusted accordingly: Yes Anticipated discharge: Home Within: within 36 hours - Inpatient Certification Medical Necessity: Need For IV Fluids, Need for Neurological Checks, Risk of Complication if Not Cared For in Hospital - Plan Summary Plan Summary: Maintain in ICU; continue neuro checks; Plan to transfer to floor in AM if more alert
[2017-03-02] MEDS: FAMOTIDINE INJ/PF 20 MG/2 ML SDV IV SCH ×2 (09:32→21:43)
[2017-03-02] MEDS: FERROUS SULFATE 325 MG TABLET PO SCH ×2 (09:33→17:05)
--- NOTE | 2017-03-02 09:40 | RADIOLOGY REPORT (SQ) ---
EXAM DESCRIPTION: CT HEAD WITHOUT COMPLETED DATE/TIME: 03/02/2017 9:29 am REASON FOR STUDY: AMS COMPARISON: None. TECHNIQUE: Axial images acquired through the brain without intravenous contrast. Images reviewed wi th bone, brain and subdural windows. Images stored on PACS. All CT scanners at this facility use dose modulation, iterative reconstruction, and/or weight based d osing when appropriate to reduce radiation dose to as low as reasonably achievable (ALARA). [facility]: Dose Right [facility]: CareDose [facility]: Dose Right [facility]: Teradose 4D [facility]: Smart [employer] RADIATION DOSE: Up-to-date CT equipment and radiation dose reduction techniques were employed. CTDIv ol: 48.6 - 49.0 mGy. DLP: 1835 mGy-cm. mGy. LIMITATIONS: Motion artifact. FINDINGS: VENTRICLES: Normal size and contour. CEREBRUM: No masses. No hemorrhage. No midline shift. No evidence for acute infarction. Normal gra y/white matter differentiation. No areas of low density in the white matter. CEREBELLUM: No masses. No hemorrhage. No alteration of density. No evidence for acute infarction. EXTRAAXIAL SPACES: No fluid collections. No masses. ORBITS AND GLOBE: No intra- or extraconal masses. Normal contour of globe without masses. CALVARIUM: No fracture. PARANASAL SINUSES: No fluid or mucosal thickening. SOFT TISSUES: No mass or hematoma. OTHER: No other significant finding. IMPRESSION: NORMAL BRAIN CT WITHOUT CONTRAST. EVIDENCE OF ACUTE STROKE: NO. COMMENT: Quality ID # [id number]: Final reports with documentation of one or more dose reduction techniques (e.g., Automated exposure control, adjustment of the mA and/or kV according to patient size, use of iterative reconstruction technique) TECHNICAL DOCUMENTATION: JOB ID: [id number] [email or web address]- All Rights Reserved
[2017-03-02] MEDS ORDERED: MAGNESIUM SULFATE/D5W 1 GM/100 ML RTUPB IV ONE (09:48)
[2017-03-02 13:44] LABS: ANION GAP 11 (5-19); BLOOD UREA NITROGEN 12 mg/dL (7-20); CALCIUM 8.8 mg/dL (8.4-10.2); CARBON DIOXIDE 24 mmol/L (22-30); CHLORIDE 106 mmol/L (98-107); CREATININE RESULT 0.84 mg/dL (0.52-1.25); GLUCOSE 165 mg/dL (75-110); POTASSIUM 4.4 mmol/L (3.6-5.0); SODIUM 140.8 mmol/L (137-145)
[2017-03-02] MEDS: CLONIDINE HCL 0.1 MG TABLET PO SCH ×2 (13:47→21:42)
[2017-03-02 17:20] LABS: ANION GAP 9 (5-19); BLOOD UREA NITROGEN 11 mg/dL (7-20); CALCIUM 8.3 mg/dL (8.4-10.2); CARBON DIOXIDE 22 mmol/L (22-30); CHLORIDE 103 mmol/L (98-107); CREATININE RESULT 0.87 mg/dL (0.52-1.25); GLUCOSE 368 mg/dL (75-110); SODIUM 133.9 mmol/L (137-145)
[2017-03-02 17:25] LABS: POTASSIUM 5.7 mmol/L (3.6-5.0)
[2017-03-02] MEDS ORDERED: SODIUM POLYSTYRENE SULFONATE 15 GM/60 ML PO ONE (18:31)
[2017-03-02] MEDS ORDERED: INSULIN GLARGINE,HUM.REC.ANLOG 300 UNIT/3 ML INSULN.PEN SUBCUT SCH (18:32)
[2017-03-02 22:32] LABS: ANION GAP 7 (5-19); BLOOD UREA NITROGEN 11 mg/dL (7-20); CALCIUM 8.5 mg/dL (8.4-10.2); CARBON DIOXIDE 23 mmol/L (22-30); CHLORIDE 105 mmol/L (98-107); CREATININE RESULT 0.98 mg/dL (0.52-1.25); GLUCOSE 296 mg/dL (75-110); SODIUM 134.6 mmol/L (137-145)
[2017-03-03] MEDS: INSULIN LISPRO 100 UNIT/ML 3 ML VIAL SUBCUT PRN (01:07)
[2017-03-03] MEDS: CLONIDINE HCL 0.1 MG TABLET PO SCH (06:20)
[2017-03-03] MEDS: HEPARIN SOD (PORCINE) 5,000 UNIT/ML 1 ML SYRINGE SUBCUT SCH (06:21)
[2017-03-03 07:03] LABS: ABSOLUTE LYMPHOCYTES (AUTO) 2.3 10^3/uL (0.5-4.7); ABSOLUTE MONOCYTES (AUTO) 0.5 10^3/uL (0.1-1.4); ABSOLUTE NEUT (AUTO) 2.9 10^3/uL (1.7-8.2); BASOPHILS % (AUTO) 0.7 % (0-2); EOSINOPHILS % (AUTO) 0.3 % (0-6); HEMATOCRIT 27.8 % (36.0-47.0); HEMOGLOBIN 9.4 g/dL (12.0-15.5); HGB HCT DIFFERENCE 0.4; LYMPHOCYTES % (AUTO) 40.5 % (13-45); MEAN CORPUSCULAR HEMOGLOBIN 29.5 pg (27.0-33.4); MEAN CORPUSCULAR HGB CONC 33.8 g/dL (32.0-36.0); MEAN CORPUSCULAR VOLUME 87 fl (80-97); MONOCYTES % (AUTO) 7.8 % (3-13); RED BLOOD COUNT 3.18 10^6/uL (3.72-5.28); RED CELL DISTRIBUTION WIDTH 15.2 % (11.5-14.0); SEGMENTED NEUTROPHILS % (AUTO) 50.7 % (42-78); WHITE BLOOD COUNT 5.8 10^3/uL (4.0-10.5)
[2017-03-03 07:31] LABS: ANION GAP 9 (5-19); BLOOD UREA NITROGEN 12 mg/dL (7-20); CALCIUM 8.9 mg/dL (8.4-10.2); CARBON DIOXIDE 24 mmol/L (22-30); CHLORIDE 106 mmol/L (98-107); CREATININE RESULT 0.99 mg/dL (0.52-1.25); GLUCOSE 126 mg/dL (75-110); POTASSIUM 4.7 mmol/L (3.6-5.0); SODIUM 139.3 mmol/L (137-145)
[2017-03-03] MEDS: FERROUS SULFATE 325 MG TABLET PO SCH (08:08)
--- NOTE | 2017-03-03 08:26 | PDOC DISCHARGE SUMMARY ---
General - Admit/Disc Date/PCP Admission Date/Primary Care Provider: 03/01/17 03:51 Discharge Date: 03/03/17 - Discharge Diagnosis (1) DKA (diabetic ketoacidoses) Is this a current diagnosis for this admission?: Yes Summary: DKA in diabetes mellitus type 1, uncontrolled, A1c greater than 14%, due to medication noncompliance, and the patient who recently had a viral illness. DKA has resolved completely after aggressive IV fluids, IV insulin. Patient has been successfully transitioned to subcutaneous basal Lantus and correctional sliding scale insulin. Diabetic education and dietary instructions were provided. Patient is going to follow-up with her primary care physician. (2) Acute metabolic encephalopathy Is this a current diagnosis for this admission?: Yes Summary: Altered mental status due to DKA. Resolved. Of note, on admission it was thought that the patient might have overdosed on possibly gabapentin. She had about 28 tablets of gabapentin that were thought to be missing from her medication bottle. Urine drug screen was negative. Serum alcohol level and acetaminophen levels were within normal limits. Head CT scan was negative for any abnormalities. At this point patient is fully alert and oriented 3. She informs me that she did not attempt suicide and she did not take extra gabapentin tablets. She does admit to having some amount of depression. Psychiatry was consulted on admission and is going to see the patient prior to discharge. (3) Acute renal failure Is this a current diagnosis for this admission?: Yes Summary: Acute kidney injury, nonoliguric, due to severe dehydration secondary to severe DKA. Resolved (4) Anemia Is this a current diagnosis for this admission?: Yes Summary: Iron deficiency anemia, hemoglobin 8.7, MCV 88, iron less than 10, ferritin 72.2. Patient started on iron supplementation (5) Leukocytosis Is this a current diagnosis for this admission?: Yes Summary: Possibly an acute phase reaction due to DKA. Resolved. Patient remains afebrile and blood cultures have been negative to date. (6) Hypernatremia Is this a current diagnosis for this admission?: Yes Summary: Due to an SS/bicarbonate fluid resuscitation. Resolved with free water replacement - Additional Information Resuscitation Status: Full Code Discharge Diet: Diabetic Discharge Activity: Activity As Tolerated Home Medications: Gabapentin [Neurontin] 800 mg PO Q6 03/01/17 Hydrocodone Bit/Acetaminophen [Hydrocodon-Acetaminophen 5-325] 1 tab PO Q6HP PRN 03/01/17 Insulin Glargine,Hum.rec.anlog [Lantus Solostar] 20 unit SQ DAILY 03/01/17 Ferrous Sulfate [Feosol 325 mg Tablet] 325 mg PO BIDPCBS #90 tablet 03/03/17 Insulin Lispro [Humalog Insulin (Lispro) 100 unit/mL] 0 - 12 unit SUBCUT Q1HP PRN unit 03/03/17 History of Present Illness History of Present Illness: NATALI CARDENAS is a 21 year old female Hospital Course Hospital Course: 20-year-old female with history of poorly controlled diabetes mellitus type 1 who was found unresponsive by a friend who did not activated EMS. The patient was found to be in severe DKA with pH 6.7, capillary glucose of 1454, potassium of 7.2. Additionally, there was question of possible ingestion of unknown medications, thought to be possibly gabapentin. She was admitted to the intensive care and started on DKA protocol. For further details please refer to the previously dictated H&P Physical Exam Vital Signs: Temp Pulse Resp BP Pulse Ox 99.5 F 86 22 H 113/88 H 100 03/02/17 05:23 03/03/17 08:00 03/03/17 06:24 03/03/17 06:24 03/03/17 06:24 Intake & Output 03/02/17 03/03/17 03/04/17 06:59 06:59 06:59 Intake Total 2387 4207 Output Total 3506 3002 Balance -1119 1205 Weight 54.9 kg General appearance: PRESENT: no acute distress, cooperative, thin Head exam: PRESENT: atraumatic, normocephalic Eye exam: PRESENT: conjunctiva pink, EOMI, PERRLA Respiratory exam: PRESENT: clear to auscultation dmitry, symmetrical, unlabored. ABSENT: accessory muscle use, chest wall tenderness, crackles, decreased breath sounds, prolonged expiratory phas, rales, retraction, rhonchi, stridor, tachypnea, wheezes, other Cardiovascular exam: PRESENT: RRR, +S1, +S2. ABSENT: bradycardia, clicks, diastolic murmur, gallop, irregular rhythm, rubs, systolic murmur, tachycardia, other GI/Abdominal exam: PRESENT: normal bowel sounds, soft. ABSENT: ascites, diminished bowel sounds, distended, firm, guarding, hernia, hyperactive bowel sounds, hypoactive bowel sounds, mass, Palmer's sign, organolmegaly, rebound, rigid, tenderness, other Musculoskeletal exam: PRESENT: ambulatory, full ROM Neurological exam: PRESENT: alert, awake, oriented to person, oriented to place , oriented to time, oriented to situation, reflexes normal, CN II-XII grossly intact, normal gait. ABSENT: altered, abnormal gait, ataxia, motor sensory deficit, aphasic, other Psychiatric exam: PRESENT: appropriate affect, normal mood. ABSENT: agitated, anxious, depressed, flat affect, homicidal ideation, manic, suicidal ideation, unusual affect, other Skin exam: PRESENT: intact, normal color, warm Results Laboratory Results: 03/03/17 06:30 03/03/17 06:30 03/02/17 03/02/17 03/02/17 09:37 13:12 16:50 WBC RBC Hgb Hct MCV MCH MCHC RDW Plt Count Seg Neutrophils % Lymphocytes % Monocytes % Eosinophils % Basophils % Absolute Neutrophils Absolute Lymphocytes Absolute Monocytes Absolute Eosinophils Absolute Basophils Sodium Cancelled 140.8 133.9 L Potassium Cancelled 4.4 5.7 H D Chloride Cancelled 106 103 Carbon Dioxide Cancelled 24 22 Anion Gap Cancelled 11 9 BUN Cancelled 12 11 Creatinine Cancelled 0.84 0.87 Est GFR ( Amer) Cancelled > 60 > 60 Est GFR (Non-Af Amer) Cancelled > 60 > 60 Glucose Cancelled 165 H 368 H Calcium Cancelled 8.8 8.3 L 03/02/17 03/03/17 03/03/17 21:55 06:30 06:30 WBC 5.8 RBC 3.18 L Hgb 9.4 L Hct 27.8 L MCV 87 MCH 29.5 MCHC 33.8 RDW 15.2 H Plt Count 302 Seg Neutrophils % 50.7 Lymphocytes % 40.5 Monocytes % 7.8 Eosinophils % 0.3 Basophils % 0.7 Absolute Neutrophils 2.9 Absolute Lymphocytes 2.3 Absolute Monocytes 0.5 Absolute Eosinophils 0.0 Absolute Basophils 0.0 Sodium 134.6 L 139.3 Potassium 5.0 4.7 Chloride 105 106 Carbon Dioxide 23 24 Anion Gap 7 9 BUN 11 12 Creatinine 0.98 0.99 Est GFR ( Amer) > 60 > 60 Est GFR (Non-Af Amer) > 60 > 60 Glucose 296 H 126 H Calcium 8.5 8.9 03/01/17 03/01/17 03/01/17 05:00 10:58 16:55 Creatine Kinase Troponin I < 0.012 0.028 0.047 03/01/17 03/02/17 23:35 05:40 Creatine Kinase 58 Troponin I 0.044 Impressions: KUB X-Ray 03/01/17 00:00 IMPRESSION: NG tube with its tip in the left upper quadrant presumably in the proximal stomach Head CT 03/02/17 00:00 IMPRESSION: NORMAL BRAIN CT WITHOUT CONTRAST. EVIDENCE OF ACUTE STROKE: NO. Status: Image reviewed by me Qualifiers PATEINT BEING DISCHARGED WITH ANY OF THE FOLLOWING DIAGNOSIS?: No Plan Time Spent: Greater than 30 Minutes - Patient will be discharged home if okay with psychiatry
[2017-03-03] MEDS: FAMOTIDINE INJ/PF 20 MG/2 ML SDV IV SCH (10:30)
--- NOTE | 2017-03-03 10:39 | PSYCHOLOGICAL NOTE ---
Psych Note - Psych Note Psych Note: Met with Patient for consult. Patient advised she is from [place] and is in [place] for vacation. She advised she did not overdose and has no history of suicide attempts. She advised she has a history of juvenile onset diabetes and one kidney, and is not very good about taking care of herself (i.e.eating correctly , medication compliance, etc.). Patient admitted she feels slightly depressed and anxious and could utilize some counseling and medication when she returns home. Patient admits a juvenile history of oppositional defiant disorder and a 6 -month stay in a [facility] with good results. She reported she was prescribed Lamictal but it was not helpful and she stopped the medication when she discharged from the facility. Patient denied any other mental health or substance abuse history. Patient was alert and oriented to person, place, time,and circumstance. Mood was slightly depressed and affect was mood congruent. She denied suicidal / homicidal ideation, intent, or plan. She denied auditory / visual hallucinations and no delusions were evident. Thought processes were linear, rational, and logical. Conversational speech was within normal limits for rate, tone, and prosody. Intellectual abilities were estimated within the average range. Attention and concentration were fair. Insight, judgment, and impulse control were fair. 1. 296.31 (F33.0) Major Depression, Recurrent, Mild 2. E10.10 Diabetes Mellitus with Ketoacidosis Without Coma Plan: Patient is recommended for rescinding of IVC and is considered psychiatrically clear. Patient denied her admission is secondary to a suicide attempt and there is no evidence to support the same. Patient admits to mild depression secondary to ongoing, chronic medical conditions. She was provided education with regard to cognitive management of the medical symptoms and depression and encouraged to follow up with mental health resources in [place] upon her return. She indicated willingness to do such. Hospitalist advised of completion of consult and of recommendation and disposition. He was in agreement with all.
[2017-03-03 12:45] VITALS: BP 112/75
[2017-03-03 20:04] LABS: PATH REVIEW PATHOLOGIST REVIEWED
== END 2017-03-03 13:30 | disposition home or self-care (01) | DRG 637 ==
LOC: ER 00:25 → EH 03:51 → ICU 04:24
PROVIDERS: ADMIT Family Medicine; ATTEND Family Medicine
PROC: 06HM33Z Insertion of Infusion Device into Right Femoral Vein, Percutaneous Approach (ICD-10-PCS; principal; 2017-03-01)
PROC: B54BZZA Ultrasonography of Right Lower Extremity Veins, Guidance (ICD-10-PCS; 2017-03-01)
DX: E10.10 Type 1 diabetes mellitus with ketoacidosis without coma (principal); G93.41 Metabolic encephalopathy; N17.0 Acute kidney failure with tubular necrosis; E87.0 Hyperosmolality and hypernatremia; F33.0 Major depressive disorder, recurrent, mild; E86.0 Dehydration; D50.9 Iron deficiency anemia, unspecified; T42.6X4A Poisoning by other antiepileptic and sedative-hypnotic drugs, undetermined, initial encounter; E87.5 Hyperkalemia; D72.823 Leukemoid reaction; R68.0 Hypothermia, not associated with low environmental temperature; I45.81 Long QT syndrome; Z90.5 Acquired absence of kidney; Z91.14 Patient's other noncompliance with medication regimen; Z79.4 Long term (current) use of insulin; Z79.899 Other long term (current) drug therapy
CPT/HCPCS: 36415; 51702; 70450; 74000; 80048; 80053; 80307; 81001; 82010; 82140; 82550; 82607; 82728; 82746; 82803; 82947; 82962; 83036; 83540; 83550; 83735; 84443; 84466; 84484; 84703; 85025; 85045; 87040; 87086; 93005; 93010; 96360; 99291; 99292; C1751; J1642; J1644; J1815; J3475; J3480; J3490; J7030; J7060; S0028